=== PATIENT | male | born 1970 | race Caucasian/White ===

== ENCOUNTER 2019-08-11 21:35 | Emergency (ER) | payer BC ==
[~2019-08-11] VITALS: Ht 177.8 cm; Wt 115.7 kg
[2019-08-11 21:40] VITALS: Ht 177.8 cm; Wt 115.7 kg
[2019-08-11 23:26] VITALS: BP 138/84
== END 2019-08-11 23:26 | disposition home or self-care (01) ==
LOC: ED 21:35
DX: K21.9 Gastro-esophageal reflux disease without esophagitis (principal)
CPT/HCPCS: C9113; J1610; J2765; J7030